=== PATIENT | female | born 1980 | race African-American/Black ===

== ENCOUNTER 2017-05-19 08:27 | Emergency (ER) | payer OTHER ==
[~2017-05-19] VITALS: Ht 160 cm; Wt 104.3 kg
[~2017-05-19 08:27] MED LIST: FLEXERIL10 MG PO; IBUPROFEN100 MG PO
== END 2017-05-19 09:47 | disposition home or self-care (01) ==
LOC: CED 08:27
DX: J02.9 Acute pharyngitis, unspecified (principal); G56.02 Carpal tunnel syndrome, left upper limb; R51 Headache
CPT/HCPCS: 29125; 87651; 99283